=== PATIENT | female | born 1990 | race Caucasian/White ===

== ENCOUNTER 2018-01-10 17:08 | Emergency (ER) | payer OTHER ==
[2018-01-10 17:57] LABS: AMYLASE 29 IU/L (1-118); CHLORIDE 105 mEq/L (99-109); POTASSIUM 4.2 mEq/L (3.7-5.4); SODIUM 141 mEq/L (136-147)
[2018-01-10 17:59] LABS: GLUCOSE 103 mg/dL (70-99)
[2018-01-10 18:02] LABS: SERUM ETHYL ALCOHOL < 10 mg/dL
[2018-01-10 18:03] LABS: CREATININE 0.7 mg/dL (0.6-1.3)
[2018-01-10 18:04] LABS: UREA NITROGEN (BUN) 8 mg/dL (9-23)
[2018-01-10 18:06] LABS: LIPASE 21 U/L (1.0-51.0)
[2018-01-10 18:09] LABS: GFR ESTIMATE (CALCULATED) > 59 mL/min/
[2018-01-10 18:12] LABS: QUANTITATIVE HCG < 4.0 MIU/ML
[2018-01-10 18:13] LABS: BASOPHIL (%) 0.3 % (0-1); BASOPHIL COUNT 0.1 K/uL (0-0.1); EOSINOPHIL COUNT 0.2 K/uL (0-0.3); HEMOGLOBIN 11.3 G/DL (11.9-15.5); IMMATURE GRANULOCYTE (%) 0.3 % (0.0-0.7); LYMPHOCYTE (%) 17.3 % (15-42); LYMPHOCYTE COUNT 2.7 K/uL (1.0-2.8); MCH 29.7 PG (29.0-34.0); MCHC 33.2 G/DL (30.0-36.0); MCV 89.5 FL (83-99); MONOCYTE (%) 4.3 % (3-12); MONOCYTE COUNT 0.7 K/uL (0-0.8); NEUTROPHIL (%) 76.8 % (45-76); NEUTROPHIL COUNT 11.9 K/uL (1.8-6.4); PLATELET COUNT 276 K/uL (156-360); RBC DIS.WIDTH-CV 13.6 % (11.8-14.6); RBC DIS.WIDTH-SD 44.9 % (39-53); WHITE BLOOD COUNT 15.5 K/uL (4.1-10.2)
[2018-01-10 18:44] LABS: APPEARANCE SL.HAZY ((CLEAR)); BILIRUBIN NEGATIVE; BLOOD MODERATE; COLOR YELLOW ((YELLOW)); GLUCOSE (STRIP) NEGATIVE; KETONES NEGATIVE; LEUKOCYTES LARGE; NITRITE POSITIVE; PROTEIN (STRIP) NEGATIVE; SPECIFIC GRAVITY 1.036 (1.000-1.030); UROBILINOGEN 0.2 MG/DL (0.2-1.0)
[2018-01-10 18:52] LABS: BACTERIA 1+ /HPF; EPITHELIAL CELLS 1+ /HPF; MUCUS TRACE /LPF; UCUL ADDED? YES; WHITE BLOOD CELLS TNTC /HPF (0-5)
[2018-01-10 18:53] LABS: AMPHETAMINE NEGATIVE (500 ng/mL); BARBITURATES NEGATIVE (200 ng/mL); BENZODIAZEPINES NEGATIVE (150 ng/mL); BUPRENORPHINE NEGATIVE (10 ng/mL); COCAINE PRESUMPTIVE POSITIVE (150 ng/mL); METHADONE NEGATIVE (200 ng/mL); METHAMPHETAMINE NEGATIVE (500 ng/mL); OPIATES (MORPHINE) PRESUMPTIVE POSITIVE (100 ng/mL); OXYCODONE NEGATIVE (100 ng/mL); PHENCYCLIDINE NEGATIVE (25 ng/mL); PROPOXYPHENE NEGATIVE (300 ng/mL); THC CANNABINOIDS PRESUMPTIVE POSITIVE (50 ng/mL); TRICYCLIC ANTIDEPRESSANTS NEGATIVE (300 ng/mL)
[2018-01-10] MEDS ORDERED: ROXICODONE5 MG PO (20:18)
[2018-01-10] MEDS ORDERED: NAPROSYN500 MG PO (20:18)
[2018-01-10] MEDS ORDERED: FLEXERIL10 MG PO (20:18)
[2018-01-10] MEDS ORDERED: BACITRACIN28.4 GM TP (20:20)
[2018-01-10] MEDS ORDERED: CIPRO250 MG PO (22:36)
== END 2018-01-10 21:23 | disposition home or self-care (01) ==
LOC: TRA 17:08
PROVIDERS: Emergency Medicine
PROC: 06HM33Z Insertion of Infusion Device into Right Femoral Vein, Percutaneous Approach (ICD-10-PCS; principal; 2018-01-10)
PROC: 3E0234Z Introduction of Serum, Toxoid and Vaccine into Muscle, Percutaneous Approach (ICD-10-PCS; principal; 2018-01-10)
DX: S83.92XA Sprain of unspecified site of left knee, initial encounter (principal); S80.812A Abrasion, left lower leg, initial encounter; S80.811A Abrasion, right lower leg, initial encounter; S40.022A Contusion of left upper arm, initial encounter; S06.0X0A Concussion without loss of consciousness, initial encounter; Y04.0XXA Assault by unarmed brawl or fight, initial encounter; V03.00XA Pedestrian on foot injured in collision with car, pick-up truck or van in nontraffic accident, initial encounter; Z23 Encounter for immunization; F17.200 Nicotine dependence, unspecified, uncomplicated; Z98.1 Arthrodesis status; Z88.6 Allergy status to analgesic agent; Z88.0 Allergy status to penicillin
CPT/HCPCS: 70450; 71260; 72125; 72129; 72132; 72170; 73030; 73060; 73090; 73552; 73590; 74177; 80048; 81003; 82150; 83690; 84702; 84999; 85025; 86850; 86900; 86901; 87077; 87086; 87186; 99281; 99285; C1751; G0480; J3010